=== PATIENT | male | born 1960 | race Caucasian/White ===

== ENCOUNTER 2021-05-25 08:57 | Emergency (ER) | payer OTHER ==
[~2021-05-25] VITALS: Ht 182.9 cm; Wt 72.6 kg
[2021-05-25 10:05] LABS: HEMOGLOBIN 15.4 gm/dl (14.0-17.5); RED BLOOD COUNT 4.91 M/UL (4.20-5.50); WHITE BLOOD COUNT 8.3 K/UL (4.5-11.0)
[2021-05-25 11:10] LABS: BUN/CREATININE RATIO 11 (0-10)
[2021-05-26 09:31] LABS: HEMOGLOBIN 14.4 gm/dl (14.0-17.5); RED BLOOD COUNT 4.62 M/UL (4.20-5.50); WHITE BLOOD COUNT 7.1 K/UL (4.5-11.0)
[2021-05-26 10:07] LABS: BUN/CREATININE RATIO 10 (0-10)
== END 2021-05-26 11:30 | disposition short-term general hospital (02) ==
LOC: ER1 08:57
PROVIDERS: Emergency Medicine; Physician Assistant
DX: K04.7 Periapical abscess without sinus (principal); I10 Essential (primary) hypertension; Z72.89 Other problems related to lifestyle; F17.210 Nicotine dependence, cigarettes, uncomplicated; L03.221 Cellulitis of neck; Z20.822 Contact with and (suspected) exposure to COVID-19
CPT/HCPCS: 70487; 70491; 71045; 71250; 80048; 80053; 83880; 84439; 84443; 85025; 87040; 96374; 96375; 96376; 99284; J0360; J2543; Q9967; U0002

== ENCOUNTER → 2021-06-20 | Outpatient (CLI) | payer OTHER | LOC: MRI 13:37 | DX: C34.11 Malignant neoplasm of upper lobe, right bronchus or lung (principal) | CPT/HCPCS: 70553; A9577 ==

== ENCOUNTER → 2021-11-20 | Outpatient (CLI) | payer OTHER | LOC: MRI 13:06 | DX: C34.90 Malignant neoplasm of unspecified part of unspecified bronchus or lung (principal); R51.9 Headache, unspecified | CPT/HCPCS: 70551 ==